=== PATIENT | female | born 1945 ===

== ENCOUNTER 2021-12-01 11:46 | Emergency (ER) | payer MEDICARE ==
[2021-12-01] MEDS ORDERED: Oxymetazoline 0.05% Nasal Spray 30 ML Bottle NAS ONE (12:32)
[2021-12-01] MEDS ORDERED: Oxymetazoline 0.05% Nasal Spray 15 ML Bottle NAS ONE (12:45)
== END 2021-12-01 13:20 | disposition home or self-care (01) ==
LOC: MW.ED 11:46
DX: J06.9 Acute upper respiratory infection, unspecified (principal); I10 Essential (primary) hypertension; Z91.012 Allergy to eggs; Z88.8 Allergy status to other drugs, medicaments and biological substances; Z79.899 Other long term (current) drug therapy
CPT/HCPCS: 99283

== ENCOUNTER 2021-12-05 12:58 | Inpatient (IN) | payer MEDICARE ==
[2021-12-05] MEDS ORDERED: Sodium Chloride 0.9% 20 ML SDV IV PRN (13:12)
[2021-12-05] MEDS ORDERED: Sodium Chloride 0.9% 1,000 ML IV STA (13:12)
[2021-12-05] MEDS ORDERED: Sodium Chloride 0.9% 2.5 ML Syringe FLUSH PRN (13:12)
[2021-12-05] MEDS ORDERED: Ondansetron 4 MG/2 ML SDV IVPUSH ONE ×2 (13:12→17:26)
[2021-12-05] MEDS ORDERED: niCARdipine/Normal Saline 20 MG/200 ML BAG ONE (13:13)
[2021-12-05] MEDS ORDERED: propofoL 100 ML ONE (13:13)
[2021-12-05] MEDS: Sodium Chloride 0.9% 10 ML Syringe FLUSH PRN ×2 (13:30→13:31)
[2021-12-05] MEDS ORDERED: propofoL 100 ML IV SCH (13:30)
[2021-12-05] MEDS ORDERED: niCARdipine/Normal Saline 20 MG/200 ML BAG IV SCH (13:30)
[2021-12-05 13:41] LABS: BLOOD UREA NITROGEN,BUN 40 mg/dL (7.0-18.0); CARBON DIOXIDE,CO2 31.1 mmol/L (21.0-32.0); CHLORIDE,CL 94 mmol/L (98-107); GLUCOSE RANDOM 136 mg/dL (74-106); POTASSIUM,K 2.7 mmol/L (3.5-5.1); SODIUM,NA 139 mmol/L (136-145)
[2021-12-05 14:17] LABS: CORONAVIRUS COVID-19 NAA NEGATIVE (NEGATIVE); INFLUENZA A NAA NEGATIVE (NEGATIVE); INFLUENZA B NAA NEGATIVE (NEGATIVE)
[2021-12-05] MEDS ORDERED: Sodium Chloride 0.9% with KCl 1,000 ML IV SCH (14:30)
[2021-12-05] MEDS: cefTRIAXone 2 GM in Premix Bag 1 BAG IV ONE ×2 (16:14→18:41)
[2021-12-05] MEDS ORDERED: Morphine 2 MG/ML SYRINGE ONE (17:19)
[2021-12-05] MEDS ORDERED: Ondansetron 4 MG/2 ML SDV ONE (17:19)
[2021-12-05] MEDS ORDERED: Morphine 2 MG/ML SYRINGE IVPUSH ONE (17:26)
[2021-12-05] MEDS ORDERED: cefTRIAXone 2 GM/50 ML BAG ONE (18:39)
[2021-12-05] MEDS ORDERED: Acetaminophen 650 MG Supp RECTAL PRN (19:04)
[2021-12-05] MEDS ORDERED: LORazepam 2 MG/ML SDV IM PRN (19:04)
[2021-12-05] MEDS ORDERED: Atropine 1% Ophth Soln 5 ML BOTTLE SL PRN (19:04)
[2021-12-05] MEDS ORDERED: Ondansetron 4 MG/2 ML SDV IVPUSH PRN (19:04)
[2021-12-05] MEDS ORDERED: Morphine 100 MG/5 ML (15 ML) Oral Solution PO PRN (19:04)
[2021-12-05] MEDS ORDERED: Hyoscyamine 0.125 MG Tab.SL SL PRN (19:04)
[2021-12-05] MEDS ORDERED: Morphine 10 MG/0.5 ML Oral Syringe PO PRN (19:30)
[2021-12-06] MEDS: Morphine 4 MG/ML VIAL IVPUSH PRN ×4 (06:38→21:07)
[2021-12-07] MEDS: Morphine 4 MG/ML VIAL IVPUSH PRN ×7 (06:25→21:42)
[2021-12-07] MEDS: LORazepam 2 MG/ML SDV IV PRN ×2 (18:25→21:42)
[2021-12-08] MEDS: Morphine 4 MG/ML VIAL IVPUSH PRN ×2 (05:44→15:38)
[2021-12-08] MEDS: LORazepam 2 MG/ML SDV IVPUSH SCH ×2 (09:32→13:40)
== END 2021-12-08 18:59 | disposition expired | DRG 951 ==
LOC: MW.ED 12:58 → MW.MS 18:30 → OBSVTOIN 12-08 11:38 → MW.MS 12-08 15:20
PROVIDERS: ADMIT Student in an Organized Health Care Education/Training Program; ATTEND Student in an Organized Health Care Education/Training Program
PROC: 0BH17EZ Insertion of Endotracheal Airway into Trachea, Via Natural or Artificial Opening (ICD-10-PCS; principal; 2021-12-08)
PROC: 5A1935Z Respiratory Ventilation, Less than 24 Consecutive Hours (ICD-10-PCS; 2021-12-08)
DX: I61.6 Nontraumatic intracerebral hemorrhage, multiple localized (principal); N39.0 Urinary tract infection, site not specified; I16.0 Hypertensive urgency; E87.6 Hypokalemia; Z51.5 Encounter for palliative care; N17.9 Acute kidney failure, unspecified; J96.90 Respiratory failure, unspecified, unspecified whether with hypoxia or hypercapnia; I61.9 Nontraumatic intracerebral hemorrhage, unspecified; J96.00 Acute respiratory failure, unspecified whether with hypoxia or hypercapnia; I69.351 Hemiplegia and hemiparesis following cerebral infarction affecting right dominant side; Z88.8 Allergy status to other drugs, medicaments and biological substances; I10 Essential (primary) hypertension; R29.810 Facial weakness; Z88.6 Allergy status to analgesic agent; Z91.012 Allergy to eggs; Z79.899 Other long term (current) drug therapy; R77.8 Other specified abnormalities of plasma proteins; Z20.822 Contact with and (suspected) exposure to COVID-19; G93.9 Disorder of brain, unspecified
CPT/HCPCS: 0240U; 31500; 36415; 70450; 71045; 80053; 80307; 81001; 83605; 84484; 85025; 85610; 85652; 85730; 87040; 87086; 93005; 96365; 96366; 96367; 96368; 96375; 96376; 99285; 87088; 87186; A9270-GY; G0378; J0696; J1953; J2060; J2270; J2405; J2704; J3480; J7030